=== PATIENT | male | born 1945 | race Caucasian/White ===

== ENCOUNTER 2016-12-03 19:48 | Emergency (ER) | payer MEDICARE, BC ==
[~2016-12-03 19:48] MED LIST: ACET500C PO; BAYE81TA7 PO; CENTTAB PO; DONETAB6 PO; NAME10TA PO
[2016-12-03] MEDS ORDERED: RISP0.253 (19:59)
[2016-12-03 20:28] LABS: BASO % 0.4 % (0.0-1.0); EOS # 0.1 10^3/uL (0.0-0.50); EOS % 1.8 % (0.0-3.0); IMMATURE GRANULOCYTE % 0.5 % (0-0); LYMPH # 1.3 10^3/uL (1.5-4.5); LYMPH % 17.1 % (24.0-44.0); MEAN CORPUSCULAR HEMOGLOBIN 32.4 pg (27.0-33.0); MEAN CORPUSCULAR HGB CONC 34.8 g/dl (32.0-36.5); MONO # 0.6 10^3/uL (0.0-0.8); MONO % 7.8 % (0.0-5.0); NEUTROPHILS # 5.4 10^3/uL (1.8-7.7); NEUTROPHILS % 72.4 % (36.0-66.0); PLATELET COUNT, AUTOMATED 213 10^3/uL (150-450); RED CELL DISTRIBUTION WIDTH 12.1 % (11.5-14.5); WHITE BLOOD COUNT 7.4 10^3/uL (4.0-10.0)
[2016-12-03 20:35] LABS: VENOUS BASE EXCESS 2.4 (-2.0-2.0); VENOUS O2 SATURATION 90.5 % (60.0-80.0); VENOUS PARTIAL PRESSURE CO2 45.5 mmHg (38.0-50.0); VENOUS PARTIAL PRESSURE O2 55.1 mmHg (30.0-50.0); VENOUS STANDARD HCO3 26.4 MEQ/L; VENOUS TOTAL CO2 29.2 MEQ/L (24.0-28.0)
[2016-12-03 20:37] LABS: INR 1.1
[2016-12-03 20:48] LABS: ANION GAP 9 MEQ/L (8-16); BLOOD UREA NITROGEN 16 MG/DL (7-18); CALCIUM LEVEL 8.7 MG/DL (8.8-10.2); CARBON DIOXIDE LEVEL 27 MEQ/L (21-32); CHLORIDE LEVEL 103 MEQ/L (98-107); CREATININE FOR GFR 1.04 MG/DL (0.70-1.30); GLOMERULAR FILTRATION RATE > 60.0 (>42); GLUCOSE, FASTING 110 MG/DL (83-110); POTASSIUM SERUM 3.9 MEQ/L (3.5-5.1); SODIUM LEVEL 139 MEQ/L (136-145)
--- NOTE | 2016-12-03 21:30 | REPUSA ---
CT of the head Clinical history: syncope. Protocol: Multiple axial CT images obtained with 5 mm slice thickness were obtained through the head without administration of contrast. Findings: The ventricles and sulci are symmetric but prominent in size bilaterally. There are periven tricular areas of low attenuation throughout the deep white matter. There is no evidence of acute hem orrhage or infarct. There is no midline shift, mass effect, or extra-axial fluid collection. The osse ous structures are unremarkable. The visualized paranasal sinuses and mastoid air cells are clear. Impression: No acute hemorrhage or infarct. Findings are consistent with age-related atrophy and brush filler hand jerome small vessel ischemic disease.
[2016-12-03 22:31] VITALS: BP 138/102
--- NOTE | 2016-12-04 11:42 | REP ---
REASON: Syncope. COMPARISON: Frontal view obtained as part of a rib series 04/13/2014. The technique utilized in obtaining the radiograph has magnified the cardiac silhouette and accentuated the interstitial markings. There is no change from the prior exam. The lung dill are hypo-expanded. There are no acute patchy parenchymal opacities or pleural effusions. The cardiomediastinal silhouette is stable. Cardiomegaly is again noted. There is no change in the osseous structures. IMPRESSION: Chronic changes. Signed by Rob Urena DO 12/04/2016 10:19 A
--- NOTE | 2016-12-04 12:41 | ECGEPIP ---
Stationary ECG Study [facility] - ED Test Date: 2016-12-03 Pat Name: FRANCISCO ENNIS Department: Room: - Gender: M Md Psychiatry: narendra : 1945 Requested By: TEDYD Patricia Order Number: [id number] Reading MD: Meera Nunez Measurements Intervals [place] Rate: 69 P: 34 TN: 162 QRS: -16 QRSD: 89 T: 75 QT: 387 QTc: 415 Interpretive Statements SINUS RHYTHM NONSPECIFIC T-WAVE ABNORMALITY NO PRIOR FOR COMPARISON Electronically Signed On 12-04-2016 12:41:27 EDT by Meera Nunez
== END 2016-12-03 22:33 | disposition home or self-care (01) ==
LOC: EDBD 19:48 → M ED 19:48
DX: R55 Syncope and collapse (principal); F03.90 Unspecified dementia, unspecified severity, without behavioral disturbance, psychotic disturbance, mood disturbance, and anxiety

== ENCOUNTER → 2018-11-12 | Outpatient (REF) | payer MEDICARE, BC ==
[~2018-11-12] MED LIST changes: +RISP0.253
[2018-11-12 19:51] LABS: VITAMIN B12 LEVEL 509 PG/ML
== END ==
LOC: M LAB REF 18:57
PROVIDERS: ATTEND Internal Medicine
DX: G30.0 Alzheimer's disease with early onset (principal); F02.81 Dementia in other diseases classified elsewhere, unspecified severity, with behavioral disturbance